=== PATIENT | female | born 1970 | race Caucasian/White ===

== ENCOUNTER 2019-10-04 08:54 | Inpatient (IN) | payer OTHER ==
[~2019-10-04] VITALS: Ht 160 cm; Wt 78.9 kg
[2019-10-04 08:57] VITALS: Ht 160 cm; Wt 78.9 kg
[2019-10-04 09:42] LABS: PLATELET COUNT 344 x10^3mcL (130-400); RED CELL DISTRIBUTION WIDTH 12.5 % (11.5-14.5)
[2019-10-04 10:10] LABS: BAND NEUTROPHIL 0 % (0-10); BASOPHIL 0 % (0-2); MONOCYTE 5 % (0-7); SEGMENTED NEUTROPHILS 87 % (37-75)
[2019-10-04 10:11] LABS: PLATELET MORPHOLOGY PLATELETS INCREASED; rbc morphology (normal/abnorm) ABNORMAL (NORMAL)
[2019-10-04 10:27] LABS: UA SPECIFIC GRAVITY >=1.030 (1.005-1.035); microscopic required? YES; urine erythrocyte TRACE (NEGATIVE)
[2019-10-04 15:26] LABS: CALCIUM 8.6 mg/dL (8.5-10.1); CARBON DIOXIDE 24.8 mmol/L (21-32); CHLORIDE SERUM 96 mmol/L (98-107); CREATININE SERUM 0.7 mg/dL (0.6-1.0); GFR1 > 60 mL/min; GLUCOSE SERUM 338 mg/dL (74-106); POTASSIUM SERUM 3.9 mmol/L (3.5-5.1); SODIUM SERUM 136 mmol/L (136-145)
[2019-10-04 15:32] LABS: ALBUMIN 3.5 g/dL (3.4-5.0); ALKALINE PHOSPHATASE 190 U/L (46-116); ALT/SGPT 54 U/L (14-59); BILIRUBIN TOTAL 0.3 mg/dL (0.20-1.00); TOTAL PROTEIN, SERUM 8.1 g/dL (6.4-8.2)
[2019-10-04 15:33] LABS: AMYLASE 1140 U/L (25-115)
[2019-10-04 15:54] LABS: AST/SGOT 80 U/L (15-37)
[2019-10-04 16:01] LABS: LIPASE 22339 IU/L (73-393)
[2019-10-04 16:16] VITALS: BP 139/71
[2019-10-04 21:27] VITALS: BP 149/73
[2019-10-05 05:33] VITALS: BP 125/71
[2019-10-05 06:37] LABS: BASOPHIL % 0.1 % (0-2); RED CELL DISTRIBUTION WIDTH 13.1 % (11.5-14.5)
[2019-10-05 06:57] LABS: PLATELET COUNT 353 x10^3mcL (130-400)
[2019-10-05 08:45] VITALS: BP 117/71
[2019-10-05 11:23] LABS: ALKALINE PHOSPHATASE 125 U/L (46-116); BILIRUBIN TOTAL 0.54 mg/dL (0.20-1.00); CARBON DIOXIDE 18.9 mmol/L (21-32); CHLORIDE SERUM 97 mmol/L (98-107); CREATININE SERUM 0.7 mg/dL (0.6-1.0); GFR1 > 60 mL/min; GLUCOSE SERUM 308 mg/dL (74-106); HDL CHOLESTEROL 46 mg/dL (40-60); POTASSIUM SERUM 3.2 mmol/L (3.5-5.1); SODIUM SERUM 131 mmol/L (136-145); TOTAL PROTEIN, SERUM 6.6 g/dL (6.4-8.2)
[2019-10-05 11:31] LABS: ALBUMIN 2.5 g/dL (3.4-5.0); CHOLESTEROL 361 mg/dL (<200); CHOLESTEROL/HDL RATIO 7.8
[2019-10-05 11:32] LABS: CALCIUM 6.1 mg/dL (8.5-10.1)
[2019-10-05 11:52] VITALS: BP 111/67
[2019-10-05 12:28] LABS: TRIGLYCERIDES 2216 mg/dL (<150)
[2019-10-05 13:16] LABS: ALT/SGPT 34 U/L (14-59); AST/SGOT 24 U/L (15-37)
[2019-10-05 16:59] VITALS: BP 118/71
[2019-10-05 19:26] VITALS: BP 111/73
[2019-10-06 05:15] VITALS: BP 117/78
[2019-10-06 06:55] LABS: PLATELET COUNT 279 x10^3mcL (130-400); RED CELL DISTRIBUTION WIDTH 12.9 % (11.5-14.5)
[2019-10-06 07:01] LABS: ALKALINE PHOSPHATASE 98 U/L (46-116); ALT/SGPT 26 U/L (14-59); AST/SGOT 30 U/L (15-37); CALCIUM 6.8 mg/dL (8.5-10.1); CARBON DIOXIDE 26.3 mmol/L (21-32); CHLORIDE SERUM 97 mmol/L (98-107); CREATININE SERUM 0.8 mg/dL (0.6-1.0); GFR1 > 60 mL/min; GLUCOSE SERUM 236 mg/dL (74-106); POTASSIUM SERUM 3.4 mmol/L (3.5-5.1); SODIUM SERUM 133 mmol/L (136-145); TOTAL PROTEIN, SERUM 6.4 g/dL (6.4-8.2)
[2019-10-06 07:41] VITALS: BP 121/71
[2019-10-06 08:35] LABS: ALBUMIN 2.1 g/dL (3.4-5.0); LIPASE 3859 IU/L (73-393)
[2019-10-06 10:34] LABS: MONOCYTE 4 % (0-7); SEGMENTED NEUTROPHILS 74 % (37-75)
[2019-10-06 10:37] LABS: rbc morphology (normal/abnorm) NORMAL (NORMAL)
[2019-10-06 12:20] VITALS: BP 129/75
[2019-10-06 16:23] VITALS: BP 136/71
[2019-10-06 19:12] VITALS: BP 140/76
[2019-10-07 05:29] VITALS: BP 117/53
[2019-10-07 07:42] VITALS: BP 127/71
[2019-10-07 11:13] LABS: CALCIUM 7.7 mg/dL (8.5-10.1); CARBON DIOXIDE 30.1 mmol/L (21-32); CHLORIDE SERUM 95 mmol/L (98-107); CREATININE SERUM 0.6 mg/dL (0.6-1.0); GFR1 > 60 mL/min; GLUCOSE SERUM 218 mg/dL (74-106); POTASSIUM SERUM 3.5 mmol/L (3.5-5.1); SODIUM SERUM 130 mmol/L (136-145)
[2019-10-07 11:14] LABS: C REACTIVE PROTEIN < 0.2 mg/dL (<=0.9)
[2019-10-07 11:51] VITALS: BP 120/65
[2019-10-07 16:22] VITALS: BP 137/67
[2019-10-07 20:55] VITALS: BP 150/62
[2019-10-08 05:29] VITALS: BP 128/64
[2019-10-08 06:49] LABS: RED CELL DISTRIBUTION WIDTH 13.1 % (11.5-14.5)
[2019-10-08 07:12] LABS: BASOPHIL % 0.2 % (0-2); PLATELET COUNT 256 x10^3mcL (130-400)
[2019-10-08 07:13] LABS: ALKALINE PHOSPHATASE 96 U/L (46-116); ALT/SGPT 20 U/L (14-59); AST/SGOT 15 U/L (15-37); BILIRUBIN TOTAL 0.66 mg/dL (0.20-1.00); CALCIUM 7.7 mg/dL (8.5-10.1); CHLORIDE SERUM 94 mmol/L (98-107); CREATININE SERUM 0.5 mg/dL (0.6-1.0); GFR1 > 60 mL/min; GLUCOSE SERUM 168 mg/dL (74-106); MAGNESIUM 1.7 mg/dL (1.8-2.4); POTASSIUM SERUM 3.4 mmol/L (3.5-5.1); SODIUM SERUM 132 mmol/L (136-145); TOTAL PROTEIN, SERUM 6.3 g/dL (6.4-8.2)
[2019-10-08 09:04] VITALS: BP 127/72
[2019-10-08 13:02] VITALS: BP 125/55
[2019-10-08 17:32] VITALS: BP 149/78
[2019-10-08 20:49] VITALS: BP 151/68
[2019-10-09 06:21] VITALS: BP 154/77
[2019-10-09 07:12] LABS: PLATELET COUNT 297 x10^3mcL (130-400); RED CELL DISTRIBUTION WIDTH 13.3 % (11.5-14.5)
[2019-10-09 07:49] LABS: ALKALINE PHOSPHATASE 119 U/L (46-116); ALT/SGPT 26 U/L (14-59); AST/SGOT 34 U/L (15-37); BILIRUBIN DIRECT 0.41 mg/dL (0.0-0.2); BILIRUBIN TOTAL 0.8 mg/dL (0.20-1.00); CALCIUM 8.1 mg/dL (8.5-10.1); CARBON DIOXIDE 28.2 mmol/L (21-32); CHLORIDE SERUM 96 mmol/L (98-107); CREATININE SERUM 0.4 mg/dL (0.6-1.0); GFR1 > 60 mL/min; GLUCOSE SERUM 178 mg/dL (74-106); SODIUM SERUM 136 mmol/L (136-145); TOTAL PROTEIN, SERUM 6.6 g/dL (6.4-8.2)
[2019-10-09 07:53] LABS: ALBUMIN 2.2 g/dL (3.4-5.0)
[2019-10-09 09:00] VITALS: BP 139/69
[2019-10-09 10:34] LABS: BAND NEUTROPHIL 25 % (0-10); BASOPHIL 0 % (0-2); METAMYELOCTE 1 % (0-2); MONOCYTE 9 % (0-7); MYELOCYTE 2 % (0-2); SEGMENTED NEUTROPHILS 51 % (37-75)
[2019-10-09 10:36] LABS: PLATELET MORPHOLOGY PLT CLUMPS SEEN; rbc morphology (normal/abnorm) ABNORMAL (NORMAL)
[2019-10-09 13:52] VITALS: BP 140/64
[2019-10-09] MEDS ORDERED: NORCO1 TA2 PO (15:02)
[2019-10-09 15:23] VITALS: BP 140/64
[2019-10-09 16:56] VITALS: BP 137/72
[2019-10-10 14:07] LABS: CALCIUM IONIZED 4.5 mg/dL (4.5-5.6)
== END 2019-10-09 18:28 | disposition home or self-care (01) | DRG 282 ==
LOC: ED 08:54 → DU 14:07 → MU 10-08 14:50
PROVIDERS: Emergency Medicine; Internal Medicine Gastroenterology; Internal Medicine Pulmonary Disease; ADMIT Internal Medicine Pulmonary Disease
DX: K85.90 Acute pancreatitis without necrosis or infection, unspecified (principal); E11.65 Type 2 diabetes mellitus with hyperglycemia; E78.5 Hyperlipidemia, unspecified; E66.9 Obesity, unspecified; E78.1 Pure hyperglyceridemia; D72.823 Leukemoid reaction; Z79.84 Long term (current) use of oral hypoglycemic drugs; Z88.5 Allergy status to narcotic agent; Z68.30 Body mass index [BMI] 30.0-30.9, adult; Z23 Encounter for immunization; Z79.899 Other long term (current) drug therapy
CPT/HCPCS: 82962; 90658; 97116-GP; C9113; G0378; J0696; J1170; J1650; J1815; J1885; J2212; J2405; J2543; J2765; J3010; J7030; J7050; J7120; Q0092